=== PATIENT | male | born 1960 | race Caucasian/White ===

== ENCOUNTER 2018-08-31 10:41 | Inpatient (IN) | payer MEDICARE ==
[2018-08-31] MEDS ORDERED: Ondansetron ODT 4 MG TAB SL PRN (11:00)
[2018-08-31] MEDS ORDERED: Acetaminophen 325 MG TAB PO PRN (11:00)
[2018-08-31] MEDS ORDERED: Ondansetron HCl/PF 4 MG/2 ML Vial IVP PRN (11:00)
[2018-08-31] MEDS ORDERED: Bisacodyl 5 MG TAB PO PRN (13:45)
[2018-08-31] MEDS ORDERED: Dextrose 50% Abboject 50 ML SYRINGE SLOW IVP PRN (13:48)
[2018-08-31] MEDS ORDERED: Dextrose 5% in Water 1,000 ML IV PRN (13:48)
[2018-08-31] MEDS ORDERED: Azithromycin 500 MG in Sodium Chloride 0.9% 250 ML 250 ML IVPB SCH (14:00)
[2018-08-31 14:14] VITALS: BMI 26.6
--- NOTE | 2018-08-31 14:26 | HP ---
PRIMARY CARE PROVIDER: Mora Rai PA-C CHIEF COMPLAINT: Cough. HISTORY OF PRESENT ILLNESS: Mr. Chau is a pleasant 58-year-old gentleman who was seen at [facility] on 08/31/2018. He was diagnosed with ALS approximately a year ago and with Parkinson disease 5-6 years ago. He repo rts that every couple of weeks. He has episodes of aspiration when he lies down after eating. He max d a similar episode about 3 days ago. Following the episode, he has been having fevers and chills. He also has been diaphoretic. He also reports cough that is productive of minimal amount of sputum. He is unable to tell me the color of sputum because he keeps swallowing it. He also reports shortne ss of breath over the last 3 days, worse with exertion. He also reports some discomfort in the epiga stric region, but is unable to characterize it further. He denies any nausea or vomiting. He was seen in the emergency room at [place] and was transferred to this facility for further manage ment. In the emergency room at [place], he had oxygen saturation of 88% on room air. REVIEW OF SYSTEMS: All other systems reviewed and found to be negative. PAST MEDICAL HISTORY: ALS and Parkinson disease followed by Dr. Janell Rodriguez, congestive heart failu re, diabetes mellitus type 2, dyslipidemia and hypertension. PAST SURGICAL HISTORY: Left foot surgery, fifth digit amputation. SOCIAL HISTORY: Patient denies tobacco use, alcohol use or recreational drug use. FAMILY HISTORY: Significant for coronary artery disease in his father. ALLERGIES: No known drug allergies. CURRENT MEDICATIONS: Aspirin 325 mg daily, Coreg 25 mg 2 times a day, lisinopril/hydrochlorothiazide 20/12.5 mg 2 times a day, metformin 1000 mg 2 times a day, tramadol 50 mg every 6 hours as needed, c lonazepam 1 mg at bedtime, epitol 200 mg 2 times a day, carbidopa/levodopa 25/100 mg tablet half a ta blet daily, [place] 5/325 mg daily, glyburide 5 mg 2 times a day, and lovastatin 40 mg daily. PHYSICAL EXAMINATION: GENERAL: Mr. Chua is awake and alert, not in acute distress. He is obese. VITAL SIGNS: Blood pressure is 123/60, pulse 81, respiratory rate 13, and oxygen saturation 97% on 2 liters of oxygen. He is currently afebrile. EYES: No scleral icterus. No conjunctival pallor. ENT: Moist mucosal membranes, no oropharyngeal erythema or exudates. NECK: Supple, nontender. Trachea is midline. RESPIRATORY: Accessory muscles of breathing are not active. Chest wall movements are symmetric bila terally. LUNGS: Auscultation reveals crackles at mid zone of the left lung. CARDIOVASCULAR: S1 and S2 are heard, regular. Peripheral pulses palpable. No carotid bruit, no per icardial rub. ABDOMEN: Soft, distended, nontender, bowel sounds are heard, no hepatomegaly, no splenomegaly. NEUROLOGIC: Cranial nerves II-XII intact, deep tendon reflexes 2+. MUSCULOSKELETAL: Power is 5/5 in all 4 extremities. SKIN: No rashes or subcutaneous nodules. LYMPHATIC: No cervical lymphadenopathy. PSYCHIATRIC: Normal mood, normal affect, patient is oriented to person, place, and time. DATABASE: Mr. Chau's labs and investigations were reviewed. He had a chest x-ray, which shows a n infiltrate in the left upper lobe. He has leukocytosis with 13,600 white cells, of which 80.3% are neutrophils, normocytic anemia with hemoglobin 12.4, normal platelet count, normal sodium, normal po tassium, elevated blood urea nitrogen of 32, elevated creatinine of 1.31, last known creatinine 0.91 in 02/2018, normal lactic acid, normal calcium, normal albumin, unremarkable liver profile. ASSESSMENT AND PLAN: Mr. Chau is a pleasant 58-year-old gentleman who was seen at [facility] on 08/31/2018. His problem list includes: 1. Aspiration pneumonia: Mr. Chau is presenting with pneumonia following an aspiration event. He will be admitted to the hospital and treated with ceftriaxone and Flagyl. He received a dose of Z osyn in the emergency room at [place]. 2. Acute kidney injury: Mr. Chau appears to have acute renal insufficiency. We will provide hy dration and recheck creatinine. 3. Diabetes mellitus type 2. We will start him on Accu-Cheks and insulin sliding scale. 4. History of congestive heart failure. Currently, patient does not appear to be in failure, althou gh he does have bilateral lower extremity edema. We will check his BNP. 5. Hypertension: We will resume his home medications except for lisinopril/hydrochlorothiazide give n the renal insufficiency. We will monitor vital signs and titrate antihypertensives as needed. 6. We will consult Speech Therapy for the evaluation and treatment of aspiration. 7. Parkinson disease. Continue carbidopa/levodopa. 8. Dyslipidemia: Continue statin. Many thanks for allowing me to participate in your patient's care. Please feel free to contact me wi th any questions or concerns. LEVEL OF RISK: Moderate. LEVEL OF COMPLEXITY: Moderate.
[2018-08-31] MEDS: Sodium Chloride 0.9% 1,000 ML IV SCH (15:27)
[2018-08-31] MEDS: cefTRIAXone\\ROCEPHIN 1 GM in Sodium Chloride 0.9% 100 ML IVPB SCH (15:28)
[2018-08-31] MEDS: HumaLOG 300 UNITS/3 ML VIAL SC PRN ×2 (16:54→21:50)
[2018-08-31] MEDS: metroNIDAZOLE 500 MG in Premix Bag 1 BAG IVPB SCH (21:44)
[2018-09-01] MEDS: Acetaminophen 325 MG TAB PO PRN (01:26)
[2018-09-01] MEDS: metroNIDAZOLE 500 MG in Premix Bag 1 BAG IVPB SCH ×3 (05:21→21:06)
[2018-09-01 05:27] LABS: #Eosinphils 0.2 thou/uL (0.0-0.7); #Lymphocytes 1.7 thou/uL (1.20-3.40); #Monocytes 0.5 thou/uL (0.11-0.59); #Neutrophils 4.7 thou/uL (1.40-6.50); %Basophils 0.2 % (0.0-1.0); %Eosinophils 2.4 % (0.0-10.0); %Lymphocytes 24.5 % (21.0-51.0); %Monocytes 6.9 % (0.0-10.0); Hemoglobin 11.9 g/dL (14.0-18.0); Mean Corpuscular HGB CONC 32.4 g/dL (32.0-36.0); Mean Corpuscular Hemoglobin 29.7 pg (27.0-31.0); Mean Corpuscular Volume 91.8 fL (78.0-98.0); Mean Platelet Volume 8.8 fL (7.4-10.4); Platelet Count 189 thou/uL (130-400); Red Blood Cell (RBC) Count 4.01 mill/uL (4.70-6.10); White Blood Cell (WBC) Count 7.1 thou/uL (4.8-10.8)
[2018-09-01] MEDS: Sodium Chloride 0.9% 1,000 ML IV SCH ×2 (05:33→18:22)
[2018-09-01 05:39] LABS: Anion Gap 13 mmol/L (10-20); BUN (Urea Nitrogen) 29 mg/dL (8.4-25.7); Calc. Creatinine Clearance 154 mL/min (70-130); Calcium 8.8 mg/dL (7.8-10.44); Carbon Dioxide 26 mmol/L (22-29); Chloride 102 mmol/L (98-107); Estimated GFR-MDRD 82; Glucose 312 mg/dL (70-105); Potassium 3.8 mmol/L (3.5-5.1); Sodium 137 mmol/L (136-145)
[2018-09-01] MEDS: HumaLOG 300 UNITS/3 ML VIAL SC PRN ×4 (06:04→21:03)
[2018-09-01] MEDS ORDERED: traMADol HCl 50 MG TAB PO PRN (08:27)
--- NOTE | 2018-09-01 08:34 | PDOC.PN ---
- Subjective Encounter Start Date: 09/01/18 Encounter Start Time: 08:30 -: old records requested/rev Subjective: nsg notes rev, ninoska ovn, pt tolerating breakfast, had home meds last night -: nsg, COMPENSATION SPECIALIST, pt's @ bedside, no new c/o, no SOB at rest, no new cough -: old cough still non productive - Objective Vital Signs & Weight: Vital Signs (12 hours) Temp Pulse Resp BP BP Pulse Ox 09/01/18 07:20 97.5 F L 77 18 128/73 98 09/01/18 05:00 97.8 F 78 20 134/63 97 09/01/18 01:00 99.4 F 80 18 143/68 H 96 Weight Weight 280 lb I&O: 08/31/18 09/01/18 09/02/18 06:59 06:59 06:59 Intake Total 1000 Balance 1000 Result Diagrams: 09/01/18 05:04 09/01/18 05:04 Additional Labs: Accuchecks 09/01/18 08/31/18 08/31/18 06:03 21:47 16:31 POC Glucose 315 H 383 H 377 H Phys Exam - Physical Examination Constitutional: NAD seated on hosp eob HEENT: moist MMs Respiratory: no wheezing, no rales, no rhonchi, clear to auscultation bilateral decreased air mvmt throughout Cardiovascular: RRR, no significant murmur, no rub soft heart tones Gastrointestinal: soft, non-tender, no distention b/l 2+ pitting pedal edema Neurological: moves all 4 limbs Psychiatric: normal affect, A&O x 3 Dx/Plan - Plan * aspiration pna * continue empiric abx * aspiration precautions, aspiration risk * apprec COMPENSATION SPECIALIST c/s - will order barium swallow eval, last was 06/2017, results were reviewed b/l LE edema approx "a few days" of swelling, pt has a hx of b/l LE swelling, L>>R US doppler to r/o PE, also ECHO given H&P carries hx of concern for possible CHF unk EF and pt denies any ECHO in the past 12 mo pt reports prior LE doppler "years ago" IDDM2 continue to closely monitor - resumed home meds but may need dec insulin if dec PO for any reason diet: diabetic, cardiac, low sodium activity: as herlinda dvt ppx: enoxaparin greater than 30 min spent at bedside in direct patient care
[2018-09-01] MEDS: metFORMIN 500 MG TAB PO SCH ×2 (08:53→21:04)
[2018-09-01] MEDS: Multivitamin W/ Minerals 1 TAB PO SCH (08:53)
[2018-09-01] MEDS: glyBURIDE 5 MG TAB PO SCH ×2 (08:53→21:05)
[2018-09-01] MEDS: Aspirin 325 mg Enteric Coated Tablet PO SCH (08:53)
[2018-09-01] MEDS: Lisinopril/Hydrochlorothiazide 20 mg/12.5 mg Tablet PO SCH ×2 (08:54→21:05)
[2018-09-01] MEDS: Carvedilol 25 MG TAB PO SCH ×2 (08:54→21:04)
[2018-09-01] MEDS: Enoxaparin Sodium 40 MG/0.4 ML SYRINGE SC SCH (08:54)
[2018-09-01] MEDS ORDERED: Non-Formulary Item 1 EACH (Insulin Detemir [Levemir] 60 UNIT) SQ SCH (09:00)
[2018-09-01] MEDS: Lovastatin 20 MG TAB PO SCH (09:42)
[2018-09-01] MEDS: carBAMazepine 200 MG TAB PO SCH ×2 (09:43→21:06)
[2018-09-01] MEDS: Carbidopa/Levodopa 25-100 mg Tablet PO SCH ×3 (09:43→21:06)
[2018-09-01] MEDS: Insulin Glargine 60 UNITS in Pre-Filled Syringe SC SCH (09:44)
[2018-09-01] MEDS: cefTRIAXone\\ROCEPHIN 1 GM in Sodium Chloride 0.9% 100 ML IVPB SCH (13:36)
--- NOTE | 2018-09-01 13:46 | RAD ---
MODIFIED BARIUM SWALLOW: 09/01/2018 HISTORY: Dysphagia, unspecified. Pneumonitis due to inhalation of food and vomit. FLUOROSCOPY: Total fluoroscopy time is 2 minutes. Total dose is 11.51 mGy. FINDINGS: This examination was performed in conjunction with speech pathology. Varying consistencies of thin a nd thick liquid barium were administered, in addition to a barium-soaked cracker and a 12.5 mm barium tablet. The patient does demonstrate mild difficulty in formation of bolus into the posterior pharynx. There is premature spill of contrast into the vallecula prior to initiation of the swallowing mechanism. The patient did demonstrate an episode of penetration, as well as an episode of aspiration, with the thin liquid barium. An appropriate cough reflex was elicited. The patient swallowed a 12.5 mm bariu m tablet with pudding consistency barium without difficulty or holdup of the tablet within the pharyn x or most proximal visualized esophagus. IMPRESSION: 1. Minimal pooling of contrast in the vallecula and piriform sinuses. 2. Episode of penetration, as well as an episode of aspiration, with thin liquid barium. POS: [facility]
--- NOTE | 2018-09-01 14:26 | ULT ---
BILATERAL LOWER EXTREMITY VENOUS DUPLEX EXAM: Technique: Deep veins of both lower extremities evaluated with color doppler, spectral analysis and c ompression. Indication: Bilateral lower extremity edema. FINDINGS: Deep veins of both lower extremities show normal blood flow and compression. No evidence of DVT. IMPRESSION: No evidence of lower extremity DVT. POS: [facility]
[2018-09-01] MEDS: Famotidine 20 MG TAB PO SCH (21:04)
[2018-09-01] MEDS: HYDROcodone/Acetaminophen 5/325 mg Tablet PO SCH (21:05)
[2018-09-01] MEDS: clonazePAM 1 MG TAB PO SCH (21:05)
[2018-09-02] MEDS: metroNIDAZOLE 500 MG in Premix Bag 1 BAG IVPB SCH ×2 (05:40→14:11)
[2018-09-02] MEDS: metFORMIN 500 MG TAB PO SCH ×2 (08:39→21:40)
[2018-09-02] MEDS: Carbidopa/Levodopa 25-100 mg Tablet PO SCH ×3 (08:39→21:42)
[2018-09-02] MEDS: carBAMazepine 200 MG TAB PO SCH ×2 (08:39→21:45)
[2018-09-02] MEDS: Famotidine 20 MG TAB PO SCH ×2 (08:40→21:41)
[2018-09-02] MEDS: Lovastatin 20 MG TAB PO SCH (08:40)
[2018-09-02] MEDS: Carvedilol 25 MG TAB PO SCH ×2 (08:40→21:40)
[2018-09-02] MEDS: Multivitamin W/ Minerals 1 TAB PO SCH (08:40)
[2018-09-02] MEDS: Lisinopril/Hydrochlorothiazide 20 mg/12.5 mg Tablet PO SCH ×2 (08:40→21:41)
[2018-09-02] MEDS: Aspirin 325 mg Enteric Coated Tablet PO SCH (08:40)
[2018-09-02] MEDS: Enoxaparin Sodium 40 MG/0.4 ML SYRINGE SC SCH (08:41)
[2018-09-02] MEDS: glyBURIDE 5 MG TAB PO SCH ×2 (08:41→21:40)
[2018-09-02] MEDS: Insulin Glargine 60 UNITS in Pre-Filled Syringe SC SCH (08:41)
[2018-09-02] MEDS: Acetaminophen 325 MG TAB PO PRN (09:50)
[2018-09-02] MEDS: cefTRIAXone\\ROCEPHIN 1 GM in Sodium Chloride 0.9% 100 ML IVPB SCH (14:11)
[2018-09-02] MEDS: Sodium Chloride 0.9% 1,000 ML IV SCH (14:56)
--- NOTE | 2018-09-02 20:37 | PDOC.PN ---
- Subjective Encounter Start Date: 09/02/18 Encounter Start Time: 14:00 Subjective: nsg notes rev, ninoska ovn, overall feels sig better -: @ bedside -: herlinda current diet - Objective Vital Signs & Weight: Vital Signs (12 hours) Temp Pulse Resp BP BP BP Pulse Ox 09/02/18 15:00 98 F 78 16 126/65 95 09/02/18 11:00 97.8 F 76 16 126/65 95 09/02/18 08:40 76 132/69 Weight Weight 280 lb I&O: 09/01/18 09/02/18 09/03/18 06:59 06:59 06:59 Intake Total 1000 1140 1999 Balance 1000 1140 1999 Result Diagrams: 09/01/18 05:04 09/01/18 05:04 Additional Labs: Accuchecks 09/02/18 09/02/18 09/02/18 16:11 11:26 05:44 POC Glucose 156 H 206 H 156 H 09/01/18 21:00 POC Glucose 230 H Phys Exam - Physical Examination Constitutional: NAD HEENT: moist MMs Respiratory: no wheezing, no rales, no rhonchi Cardiovascular: RRR, no significant murmur, no rub Gastrointestinal: soft, non-tender, positive bowel sounds Neurological: moves all 4 limbs Psychiatric: normal affect, A&O x 3 Dx/Plan - Plan * aspiration pna * continue empiric abx - will change to oral regimen * aspiration precautions, aspiration risk * apprec PINKED EDGE SEWING MACHINE OPERATOR c/s - appears to have some progression in aspiration risk; however , patient is able to self-modify with behavioral techniques to lessen aspiration risk. will maintain current diet and work on behavioral modifications. d/w pt, PINKED EDGE SEWING MACHINE OPERATOR b/l LE edema approx "a few days" of swelling, pt has a hx of b/l LE swelling, L>>R US doppler neg for DVT ECHO unremarkable continue to monitor IDDM2 continue to closely monitor - resumed home meds but may need dec insulin if dec PO for any reason diet: diabetic, cardiac, low sodium activity: as herlinda dvt ppx: enoxaparin greater than 30 min spent at bedside in direct patient care anticipate if continued clinical improvement, pt may consider d/c tomorrow to home. he will likely benefit from HH, PT/ OT/ ST Review of Systems - Medications/Allergies Allergies/Adverse Reactions: Allergies Allergy/AdvReac Type Severity Reaction Status Date / Time No Known Allergies Allergy Verified 08/31/18 18:12 Medications: Current Medications Acetaminophen (Tylenol) 650 mg PO Q4H PRN PRN Reason: Headache/Fever/Mild Pain (1-3) Last Admin: 09/02/18 09:50 Dose: 650 mg Hydrocodone Bitart/Acetaminophen ([place] 5/325) 1 tab PO HS [facility] Last Admin: 09/01/18 21:05 Dose: Not Given Aspirin (Ecotrin) 325 mg PO DAILY [facility] Last Admin: 09/02/18 08:40 Dose: 325 mg Bisacodyl (Dulcolax) 10 mg PO DAILYPRN PRN PRN Reason: Constipation Carbamazepine (Tegretol) 200 mg PO BID [facility] Last Admin: 09/02/18 08:39 Dose: 200 mg Carbidopa/Levodopa (Sinemet 25-100) 1.5 tab PO TID [facility] Last Admin: 09/02/18 14:11 Dose: 1.5 tab Carvedilol (Coreg) 25 mg PO BID [facility] Last Admin: 09/02/18 08:40 Dose: 25 mg Clonazepam (Klonopin) 1 mg PO HS [facility] Last Admin: 09/01/18 21:05 Dose: 1 mg Dextrose/Water (Dextrose 50%) 25 gm SLOW IVP PRN PRN PRN Reason: Hypoglycemia Enoxaparin Sodium (Lovenox) 40 mg SC 0900 [facility] Last Admin: 09/02/18 08:41 Dose: 40 mg Famotidine (Pepcid) 20 mg PO BID [facility] Last Admin: 09/02/18 08:40 Dose: 20 mg Glucagon (Glucagon) 1 mg IM PRN PRN PRN Reason: Hypoglycemia Glyburide (Diabeta) 5 mg PO BID [facility] Last Admin: 09/02/18 08:41 Dose: 5 mg Lisinopril/HCTZ (Prinizide 20-12.5) 1 tab PO BID [facility] Last Admin: 09/02/18 08:40 Dose: 1 tab Dextrose/Water (D5w) 1,000 mls @ 0 mls/hr IV .Q0M PRN PRN Reason: Hypoglycemia Ceftriaxone Sodium 1 gm/ (Sodium Chloride) 100 mls @ 200 mls/hr IVPB Q24HR [facility] Last Admin: 09/02/18 14:11 Dose: 100 mls Metronidazole 500 mg/ Device 100 mls @ 100 mls/hr IVPB Q8HR [facility] Last Admin: 09/02/18 14:11 Dose: 100 mls Sodium Chloride (Normal Saline 0.9%) 1,000 mls @ 70 mls/hr IV .[id number] [facility] Last Admin: 09/02/18 14:56 Dose: 1,000 mls Insulin Glargine 60 units/ (Miscellaneous Medication) 0.6 mls @ 0 mls/hr SC QAM [facility] Last Admin: 09/02/18 08:41 Dose: 0.6 mls Insulin Human Lispro (Humalog) 0 units SC .MILD SLIDING SCALE PRN PRN Reason: Mild Correctional Scale Last Admin: 09/01/18 21:03 Dose: 3 unit Iron/Minerals/Multivitamins (Theragran M) 1 tab PO DAILY [facility] Last Admin: 09/02/18 08:40 Dose: 1 tab Lovastatin (Mevacor) 40 mg PO DAILY [facility] Last Admin: 09/02/18 08:40 Dose: 40 mg Metformin HCl (Glucophage) 1,000 mg PO BID [facility] Last Admin: 09/02/18 08:39 Dose: 1,000 mg Tramadol HCl (Ultram) 50 mg PO Q6HR PRN PRN Reason: Pain 4-6
[2018-09-02] MEDS: clonazePAM 1 MG TAB PO SCH (21:40)
[2018-09-02] MEDS: Amoxicillin/Potassium Clav 875 MG TAB PO SCH (21:41)
[2018-09-02] MEDS: HYDROcodone/Acetaminophen 5/325 mg Tablet PO SCH (21:49)
[2018-09-03 08:59] LABS: #Eosinphils 0.2 thou/uL (0.0-0.7); #Lymphocytes 1.7 thou/uL (1.20-3.40); #Monocytes 0.5 thou/uL (0.11-0.59); %Basophils 0.7 % (0.0-1.0); %Eosinophils 2.7 % (0.0-10.0); %Monocytes 7.3 % (0.0-10.0); %Neutrophils 62.3 % (42.0-75.0); Hemoglobin 12.9 g/dL (14.0-18.0); Mean Corpuscular HGB CONC 33.4 g/dL (32.0-36.0); Mean Corpuscular Hemoglobin 30.6 pg (27.0-31.0); Mean Corpuscular Volume 91.5 fL (78.0-98.0); Mean Platelet Volume 8.3 fL (7.4-10.4); Platelet Count 245 thou/uL (130-400); RBC Distribution Width 11.9 % (11.5-14.5); Red Blood Cell (RBC) Count 4.21 mill/uL (4.70-6.10); White Blood Cell (WBC) Count 6.4 thou/uL (4.8-10.8)
[2018-09-03 09:18] LABS: Anion Gap 13 mmol/L (10-20); BUN (Urea Nitrogen) 12 mg/dL (8.4-25.7); Calc. Creatinine Clearance 195 mL/min (70-130); Calcium 9.6 mg/dL (7.8-10.44); Carbon Dioxide 28 mmol/L (22-29); Chloride 102 mmol/L (98-107); Estimated GFR-MDRD Greater than 90; Glucose 175 mg/dL (70-105); Potassium 3.8 mmol/L (3.5-5.1); Sodium 139 mmol/L (136-145)
[2018-09-03] MEDS: Lisinopril/Hydrochlorothiazide 20 mg/12.5 mg Tablet PO SCH (09:18)
[2018-09-03] MEDS: glyBURIDE 5 MG TAB PO SCH (09:18)
[2018-09-03] MEDS: Famotidine 20 MG TAB PO SCH (09:19)
[2018-09-03] MEDS: Amoxicillin/Potassium Clav 875 MG TAB PO SCH (09:19)
[2018-09-03] MEDS: Carvedilol 25 MG TAB PO SCH (09:19)
[2018-09-03] MEDS: Multivitamin W/ Minerals 1 TAB PO SCH (09:19)
[2018-09-03] MEDS: metFORMIN 500 MG TAB PO SCH (09:19)
[2018-09-03] MEDS: Aspirin 325 mg Enteric Coated Tablet PO SCH (09:19)
[2018-09-03] MEDS: Lovastatin 20 MG TAB PO SCH (09:20)
[2018-09-03] MEDS: Enoxaparin Sodium 40 MG/0.4 ML SYRINGE SC SCH (09:20)
[2018-09-03] MEDS: carBAMazepine 200 MG TAB PO SCH (09:21)
[2018-09-03] MEDS: Carbidopa/Levodopa 25-100 mg Tablet PO SCH (09:21)
[2018-09-03] MEDS: Insulin Glargine 60 UNITS in Pre-Filled Syringe SC SCH (09:24)
[2018-09-03 10:15] VITALS: BP 170/85
[2018-09-03 12:28] VITALS: TEMP 98
--- NOTE | 2018-09-03 22:30 | DIS ---
DATE OF ADMISSION: 08/31/2018 DATE OF DISCHARGE: 09/03/2018 PRIMARY CARE PHYSICIAN: Mora Rai PA-C DISCHARGE DIAGNOSES: 1. Aspiration pneumonia. 2. Diastolic dysfunction. 3. Mild mitral regurgitation, mild tricuspid regurgitation. CONDITION OF PATIENT ON THE DAY OF DISCHARGE: Stable. I assessed Mr. Chau on the day of dischar . He denies any chest pain or shortness of breath. Vital signs are stable. S1 and S2 are heard, regular. Lungs are clear to auscultation bilaterally. HOSPITAL COURSE: Mr. Chau is a pleasant 58-year-old gentleman who was admitted to [facility] on 09/03/2018 for pneumonia. Please refer to my history and physical note dated 08/31/2018 for further details. He was treated with intravenous antibiotics, subsequently stepped do wn to oral antibiotics. He also had BNP checked, which was normal. A 2D echocardiogram showed left ventricular ejection fraction of 50%-55% and E/A flow reversal suggestive of diastolic dysfunction. He was seen by Speech Therapy service. He had a modified barium swallow on 09/01/2018, which showed minimal pooling of contrast in the vallecula and pyriform sinuses. He had an episode of penetration, as well as an episode of aspiration, with thin liquid barium. He also had bilateral lower extremity swelling at the time of admission. Venous Doppler studies did not show any evidence of lower extremity DVT. On the day of discharge, he has normal electrolytes, normal creatinine of 0.74, white count 6400, hem oglobin 12.9, and platelet count 245,000. He will need a followup chest x-ray in 4 weeks' time to ensure resolution of pneumonia and to rule ou t other lesions. DISCHARGE MEDICATIONS: Tramadol 50 mg every 6 hours as needed, aspirin 325 mg daily, carbamazepine 2 00 mg 2 times a day, Sinemet one and half tablets three times a day, Coreg 25 mg 2 times a day, clona zepam 1 mg at bedtime, glyburide 5 mg 2 times a day, [place] 1 tablet at bedtime, Levemir 60 units lonnie ly, lisinopril/hydrochlorothiazide 20/12.5 mg 2 times a day, lovastatin 20 mg tablets 2 tablets daily , metformin 1000 mg 2 times a day, multivitamins with iron 1 tablet daily, and amoxicillin/potassium clavulanate 875 mg 2 times a day for 7 more days. Many thanks for allowing me to participate in your patient's care. Please feel free to contact me wi th any questions or concerns. DISCHARGE DESTINATION: Home. TOTAL AMOUNT OF TIME SPENT COORDINATING THIS DISCHARGE: 33 minutes.
== END 2018-09-03 14:58 | disposition home or self-care (01) | DRG 178 ==
LOC: ERS 10:41 → ONC 11:31
PROVIDERS: ADMIT Internal Medicine; ATTEND Internal Medicine
DX: J69.0 Pneumonitis due to inhalation of food and vomit (principal); N17.9 Acute kidney failure, unspecified; G20 Parkinson's disease; I11.0 Hypertensive heart disease with heart failure; I50.9 Heart failure, unspecified; E11.9 Type 2 diabetes mellitus without complications; E78.5 Hyperlipidemia, unspecified; Z79.82 Long term (current) use of aspirin; I08.1 Rheumatic disorders of both mitral and tricuspid valves
CPT/HCPCS: 36415; 36416; 74230; 80048; 83880; 85025; 93306; 93970; 99285; G8996-GN-CL; G8996-GN-CN; G8997-GN-CJ; G8997-GN-CK; J0696; J1650; J7050

== ENCOUNTER 2019-05-05 08:57 | Outpatient (CLI) | payer MEDICARE ==
--- NOTE | 2019-05-05 12:23 | MRI ---
RIGHT UPPER EXTREMITY MRI WITHOUT IV CONTRAST: Date: 05/05/19 HISTORY: Rupture of right biceps tendon, pain and swelling. History of ALS. TECHNIQUE: Multiplanar, multisequence MRI examination of the right elbow is performed. FINDINGS: There is nonspecific subcutaneous fat stranding noted, particularly anteriorly and medially from the mid portion of the upper arm down to the level of the elbow joint. There is abnormal STIR hyperintens ity within both the long and short head portions of the biceps muscle and extending into the myotendi nous region, evidence for myotendinous partial thickness tear/strain. There is a 1.9 cm diameter more focal area of abnormal signal within the medial portion of the biceps muscle, probably a small post- traumatic seroma/hematoma. No evidence for a significant bicipital radial bursal fluid collection. Th ere is minimal increased signal at the undersurface of the common extensor tendon, evidence for tendi nopathy. Medial and lateral elbow collateral ligament complexes appear intact. No significant abnorma l marrow signal. IMPRESSION: Intramuscular and myotendinous strain involving the biceps muscle with a small intramuscular post-tra umatic fluid collection in the medial aspect. The biceps tendon insertion region shows some tendinopa thy, but no evidence for an acute biceps tendon tear or disruption. Anterior and medial subcutaneous fat stranding, evidence for edema. Minimal changes of tendinopathy involving the common extensor tend on insertion. POS: [facility]
== END 2019-05-05 08:58 | disposition home or self-care (01) ==
LOC: BICMRI 08:57
PROVIDERS: ATTEND Physician Assistant
DX: S46.211A Strain of muscle, fascia and tendon of other parts of biceps, right arm, initial encounter (principal); Z98.890 Other specified postprocedural states

== ENCOUNTER 2021-01-06 10:21 | Emergency (ER) | payer MEDICARE ==
[2021-01-06 10:52] LABS: #Eosinphils 0.3 thou/uL (0.0-0.7); #Lymphocytes 1.9 thou/uL (1.20-3.40); #Monocytes 0.5 thou/uL (0.11-0.59); #Neutrophils 6.2 thou/uL (1.40-6.50); %Basophils 0.5 % (0.0-1.0); %Eosinophils 3.1 % (0.0-10.0); %Lymphocytes 21.4 % (21.0-51.0); %Monocytes 5.1 % (0.0-10.0); %Neutrophils 69.8 % (42.0-75.0); Hemoglobin 13.2 g/dL (14.0-18.0); Mean Corpuscular HGB CONC 33.6 g/dL (32.0-36.0); Mean Corpuscular Volume 89.3 fL (78.0-98.0); Mean Platelet Volume 8.5 fL (7.4-10.4); Platelet Count 197 thou/uL (130-400); RBC Distribution Width 11.5 % (11.5-14.5); Red Blood Cell (RBC) Count 4.42 mill/uL (4.70-6.10); White Blood Cell (WBC) Count 8.8 thou/uL (4.8-10.8)
[2021-01-06 11:23] LABS: ALT (SGPT) 13 U/L (8-55); AST (SGOT) 15 U/L (5-34); Albumin 3.7 g/dL (3.5-5.0); Alkaline Phosphatase 84 U/L (40-110); Anion Gap 14 mmol/L (10-20); BUN (Urea Nitrogen) 22 mg/dL (8.4-25.7); Bilirubin, Total 0.3 mg/dL (0.2-1.2); Calc. Creatinine Clearance 0 mL/min (70-130); Calcium 8.8 mg/dL (7.8-10.44); Carbon Dioxide 28 mmol/L (22-29); Chloride 103 mmol/L (98-107); Globulin 3.5 g/dL (2.4-3.5); Glucose 115 mg/dL (70-105); Lipase 133 U/L (8-78); Potassium 4.4 mmol/L (3.5-5.1); Protein, Total 7.2 g/dL (6.0-8.3); Sodium 141 mmol/L (136-145)
[2021-01-06 12:28] LABS: Bacteria/HPF None Seen HPF (None Seen); Bilirubin Negative (Negative); Blood, Urine 2+ (Negative); Clarity Clear (Clear); Glucose, Urine (Dipstick) Normal (Negative); Ketone, Urine Negative (Negative); Leukocyte Negative Leu/uL (Negative); Nitrite Negative (Negative); Protein, Urine (Dipstick) 300 mg/dL (Neg-Trace); Specific Gravity, Urine 1.018 (1.002-1.036); Squamous Epithelial 0-3 HPF (0-3); Urobilinogen Normal mg/dL (Less than 2); WBC/HPF 0-3 HPF (0-3)
--- NOTE | 2021-01-06 14:06 | CT ---
CT ABDOMEN AND PELVIS WITH CONTRAST: 01/06/21 COMPARISON: None. HISTORY: Intermittent right lower quadrant abdominal pain. TECHNIQUE: Multiple contiguous axial images were obtained in a CT of the abdomen and pelvis with contrast. Sagit ale and coronal reformats were performed. FINDINGS: The liver, gallbladder, kidneys, adrenal glands, spleen, and pancreas are unremarkable. No free air, free fluid, or stranding changes are seen in the abdomen or pelvis. There is scattered diverticula in the colon. The small bowel and appendix are normal. No abdominal or pelvic lymphadenopathy are seen. Atherosclerotic calcifications are seen in the aorta. Calcification s are seen in the prostate. There are calcifications in the mitral valve. No abnormality seen in the lung bases. Bilateral gynecomastia is seen. The abdominal wall soft tissues are unremarkable. Degene rative changes are seen in the spine. IMPRESSION: 1. No evidence of acute intra-abdominal/pelvic abnormality. 2. Diverticulosis. POS: [facility]
== END 2021-01-06 13:30 | disposition home or self-care (01) ==
LOC: ERS 10:21
DX: R10.31 Right lower quadrant pain (principal); R10.811 Right upper quadrant abdominal tenderness; E87.5 Hyperkalemia; I11.0 Hypertensive heart disease with heart failure; I50.9 Heart failure, unspecified; E11.9 Type 2 diabetes mellitus without complications; E78.5 Hyperlipidemia, unspecified; E78.00 Pure hypercholesterolemia, unspecified; G20 Parkinson's disease; Z79.82 Long term (current) use of aspirin; Z79.899 Other long term (current) drug therapy; Z79.84 Long term (current) use of oral hypoglycemic drugs
CPT/HCPCS: 74177; 80053; 81003; 81015; 83690; 85025

== ENCOUNTER 2021-01-18 06:57 | Day surgery (SDC) | payer MEDICARE ==
[2021-01-17 12:15] VITALS: BMI 41.1
[2021-01-18] MEDS ORDERED: PROPOFOL 200 MG/20 ML VIAL ONE (08:54)
[2021-01-18] MEDS ORDERED: Lidocaine 1% PF 5 ML VIAL ONE (08:54)
--- NOTE | 2021-01-18 10:09 | OP ---
DATE OF PROCEDURE: 01/18/2021 PROCEDURE PERFORMED: Colonoscopy with snare polypectomy. PREOPERATIVE DIAGNOSIS: 1. Fecal DNA stool test positive. 2. Anemia. Iron studies were not suggestive of iron-deficiency anemia. DESCRIPTION OF PROCEDURE: Informed consent was obtained from the patient. He was sedated with total intravenous anesthesia. The rectal exam was performed and was normal. The colonoscope was advanced to the cecum where the ileocecal valve and appendiceal orifice were clearly identified. The preparation quality was good. I removed two 3- to 4-mm polyps from the cecum with cold snare polypectomy. There was severe diverticulosis throughout the colon. Retroflexed views in the rectum revealed moderate internal hemorrhoids. The remainder of the colonic mucosa was normal. IMPRESSION: 1. Two polyps removed from the cecum, measuring 3 to 4 mm. 2. Severe diverticulosis throughout the colon. 3. Moderate internal hemorrhoids. RECOMMENDATIONS: 1. Future surveillance colonoscopy based on pathology results. 2. Continue MiraLAX daily for his chronic constipation symptoms, which have improved with this regimen. 3. Follow up in GI Clinic as needed. Job ID: [id number]
== END 2021-01-18 10:20 | disposition home or self-care (01) ==
LOC: SDC 06:57
PROVIDERS: ATTEND Internal Medicine Gastroenterology
PROC: 0DBH8ZX Excision of Cecum, Via Natural or Artificial Opening Endoscopic, Diagnostic (ICD-10-PCS; principal; 2021-01-18)
DX: D12.0 Benign neoplasm of cecum (principal); K57.30 Diverticulosis of large intestine without perforation or abscess without bleeding; K64.8 Other hemorrhoids; K59.09 Other constipation; D64.9 Anemia, unspecified; K21.9 Gastro-esophageal reflux disease without esophagitis; I11.0 Hypertensive heart disease with heart failure; I50.9 Heart failure, unspecified; E11.9 Type 2 diabetes mellitus without complications; E78.00 Pure hypercholesterolemia, unspecified; G12.21 Amyotrophic lateral sclerosis; G20 Parkinson's disease; Z79.4 Long term (current) use of insulin; Z79.82 Long term (current) use of aspirin; Z79.899 Other long term (current) drug therapy
CPT/HCPCS: 88305; J2704

== ENCOUNTER 2021-01-29 15:10 | Emergency (ER) | payer MEDICARE ==
[~2021-01-29 15:10] MED LIST: Iopamidol-370 76% 500 ML 1 ML ONE
[2021-01-29 17:05] LABS: #Basophils 0.1 thou/uL (0.0-0.2); #Eosinphils 0.3 thou/uL (0.0-0.7); #Lymphocytes 1.7 thou/uL (1.20-3.40); #Monocytes 0.5 thou/uL (0.11-0.59); #Neutrophils 5.3 thou/uL (1.40-6.50); %Basophils 0.6 % (0.0-1.0); %Eosinophils 3.5 % (0.0-10.0); %Lymphocytes 21.4 % (21.0-51.0); %Monocytes 6.5 % (0.0-10.0); Hemoglobin 13.3 g/dL (14.0-18.0); Mean Corpuscular HGB CONC 32.9 g/dL (32.0-36.0); Mean Corpuscular Hemoglobin 29.6 pg (27.0-31.0); Mean Corpuscular Volume 89.9 fL (78.0-98.0); Mean Platelet Volume 8.1 fL (7.4-10.4); Platelet Count 265 thou/uL (130-400); RBC Distribution Width 11.6 % (11.5-14.5); White Blood Cell (WBC) Count 7.8 thou/uL (4.8-10.8)
[2021-01-29 17:32] LABS: ALT (SGPT) 20 U/L (8-55); AST (SGOT) 16 U/L (5-34); Albumin 3.8 g/dL (3.5-5.0); Alkaline Phosphatase 97 U/L (40-110); Anion Gap 16 mmol/L (10-20); BUN (Urea Nitrogen) 30 mg/dL (8.4-25.7); Bilirubin, Total 0.3 mg/dL (0.2-1.2); Calc. Creatinine Clearance 0 mL/min (70-130); Calcium 9.5 mg/dL (7.8-10.44); Carbon Dioxide 26 mmol/L (22-29); Chloride 100 mmol/L (98-107); Globulin 3.8 g/dL (2.4-3.5); Glucose 240 mg/dL (70-105); Potassium 4.9 mmol/L (3.5-5.1); Protein, Total 7.6 g/dL (6.0-8.3); Sodium 137 mmol/L (136-145)
== END 2021-01-29 19:41 | disposition home or self-care (01) ==
LOC: ERS 15:10
DX: L03.115 Cellulitis of right lower limb (principal); I50.9 Heart failure, unspecified; E11.9 Type 2 diabetes mellitus without complications; E78.5 Hyperlipidemia, unspecified; I11.0 Hypertensive heart disease with heart failure; Z79.899 Other long term (current) drug therapy; Z79.84 Long term (current) use of oral hypoglycemic drugs; Z79.82 Long term (current) use of aspirin
CPT/HCPCS: 80053; 83605; 85025; 87040; Q9967

== ENCOUNTER 2023-01-02 14:57 | Outpatient (CLI) | payer MEDICARE, OTHER | END 2023-01-02 14:58 | disposition home or self-care (01) | LOC: BICRAD 14:57 | PROVIDERS: ATTEND Nurse Practitioner Family | DX: E11.621 Type 2 diabetes mellitus with foot ulcer (principal); L97.419 Non-pressure chronic ulcer of right heel and midfoot with unspecified severity | CPT/HCPCS: 36415; 85025; 86140 ==